=== PATIENT | female | born 1980 | race Caucasian/White ===

== ENCOUNTER 2017-10-09 20:08 | Emergency (ER) | payer MEDICAID ==
[~2017-10-09] VITALS: Ht 152.4 cm; Wt 86.2 kg
[2017-10-09] MEDS ORDERED: ALBUTEROL2.5 MG/31 INH (20:20)
[2017-10-09 20:22] LABS: URINE BILIRUBIN NEGATIVE (Negative); URINE BLOOD NEGATIVE (Negative); URINE CLARITY CLEAR; URINE COLOR YELLOW; URINE GLUCOSE-RANDOM 1+ (Negative); URINE KETONES NEGATIVE (Negative); URINE LEUKOCYTES-REFLEX NEGATIVE (Negative); URINE NITRITE-REFLEX NEGATIVE (Negative); URINE PROTEIN NEGATIVE (Negative); URINE SPECIFIC GRAVITY <= 1.005 (1.005-1.030); URINE UROBILINOGEN 0.2 E.U./dl (0.2-1.0)
[2017-10-09] MEDS ORDERED: LITHIUM CARBON600 MG PO (20:22)
[2017-10-09] MEDS ORDERED: EFFEXOR XR75 MG PO (20:22)
[2017-10-09] MEDS ORDERED: TRAZODONE 150150 M1 PO (20:22)
[2017-10-09 20:30] LABS: AMP/METHAMP Negative (Negative); BARBITURATES Negative (Negative); BENZODIAZEPINES Negative (Negative); COCAINE Negative (Negative); METHADONE Negative (Negative); OPIATES Negative (Negative); PCP Negative (Negative); THC Negative (Negative)
[2017-10-09 20:41] LABS: ABSOLUTE LYMPHOCYTES 1.7 thou/uL (0.8-5.3); ABSOLUTE MONOCYTES 0.6 thou/uL (0.0-1.2); ABSOLUTE NEUTROPHILS 7.5 thou/uL (1.6-8.1); BASOPHILS 0.4 %; EOSINOPHILS 0.2 %; HEMATOCRIT 35.4 % (37.0-47.0); HEMOGLOBIN 12.2 gm/dL (12.0-15.0); LYMPHOCYTES 17.7 %; MCHC 34.6 g/dL (28.0-37.0); MCV 83.9 fL (80.0-100.0); MONOCYTES 5.9 %; MPV 6.9 fl. (7.2-11.1); NUCLEATED RBCS 0 /100WBC; PLATELET COUNT* 376 thou/uL (150-400); POLYS 75.8 %; RBC 4.22 mil/uL (4.20-5.00); RDW-CV 13.1 % (10.5-14.5); WBC 9.8 thou/uL (4.0-11.0)
[2017-10-09 20:51] LABS: CALCIUM 8.5 mg/dL (8.5-10.1); CREATININE 0.9 mg/dL (0.6-1.3); POTASSIUM 3.2 mmol/L (3.5-5.1)
[2017-10-09 20:55] LABS: APTT 25.2 Seconds (25.0-31.3); PROTIME 10.3 Seconds (9.20-11.50)
[2017-10-09 21:04] LABS: ALBUMIN 3.7 g/dL (3.4-5.0); TOTAL BILIRUBIN 0.4 mg/dL (<0.1-1.0); TOTAL PROTEIN 7.1 g/dL (6.4-8.2)
[2017-10-09 21:06] LABS: ALCOHOL < 10 mg/dL (<10); SALICYLATE 3.2 mg/dL (2.8-20.0)
[2017-10-09 21:07] LABS: ACETAMINOPHEN < 2 ug/mL (10-30)
--- NOTE | 2017-10-10 14:40 | EKG ---
[place] [address] ELECTROCARDIOGRAM REPORT Name: KIMMIE LLAMAS Room: [facility]#: [id number] Admission: 10/09/17 Attend Phys: Discharge: Date of : 82 Report #: [id number] THIS REPORT FOR: //name// [facility] ED Test Date: 2017-10-09 Test Time: 20:27:20 Pat Name: KIMMIE LLAMAS Department: Room: Gender: F [employer] Assistant: NATASHA : 1980 Requested By: Jose M Garrett Order Number: [id number] MD: Irineo Gonzales Measurements Intervals [place] Rate: 101 P: 8 WI: 134 QRS: 4 QRSD: 96 T: 21 QT: 439 QTc: 570 Interpretive Statements Sinus tachycardia Probable left ventricular hypertrophy Prolonged QT interval No previous ECG available for comparison Electronically Signed On 10-10-2017 14:39:52 CDT by Irineo Gonzales [email or web address] <ELECTRONICALLY SIGNED> By: Irineo Gonzales MD, [facility] 10/10/17 1439 26 26 Irineo Gonzales MD, FACC /EPI
[2017-10-11 08:48] VITALS: BP 127/61
== END 2017-10-11 08:55 ==
LOC: M.ERS 20:08
PROVIDERS: Family Medicine
DX: R45.851 Suicidal ideations (principal); T43.592A Poisoning by other antipsychotics and neuroleptics, intentional self-harm, initial encounter; Y92.89 Other specified places as the place of occurrence of the external cause; F41.9 Anxiety disorder, unspecified; Z98.890 Other specified postprocedural states

== ENCOUNTER 2017-11-22 03:27 | Emergency (ER) | payer MEDICAID ==
[~2017-11-22] VITALS: Ht 152.4 cm; Wt 90.7 kg
[~2017-11-22 03:27] MED LIST: ALBUTEROL2.5 MG/31 INH; EFFEXOR XR75 MG PO; LITHIUM CARBON600 MG PO; TRAZODONE 150150 M1 PO
[2017-11-22 03:41] LABS: URINE BILIRUBIN NEGATIVE (Negative); URINE BLOOD NEGATIVE (Negative); URINE CLARITY CLEAR; URINE COLOR YELLOW; URINE GLUCOSE-RANDOM TRACE (Negative); URINE KETONES NEGATIVE (Negative); URINE LEUKOCYTES-REFLEX NEGATIVE (Negative); URINE NITRITE-REFLEX NEGATIVE (Negative); URINE PROTEIN NEGATIVE (Negative); URINE UROBILINOGEN 0.2 E.U./dl (0.2-1.0)
[2017-11-22] MEDS ORDERED: LATUDA20 MG PO (03:47)
[2017-11-22] MEDS ORDERED: GLIPIZIDE 10 MG10 MG PO (03:47)
[2017-11-22] MEDS ORDERED: LANTUS100 UNIT/M SUBQ (03:47)
[2017-11-22 03:48] LABS: AMP/METHAMP POSITIVE (Negative); BARBITURATES Negative (Negative); BENZODIAZEPINES Negative (Negative); COCAINE Negative (Negative); METHADONE Negative (Negative); OPIATES Negative (Negative); PCP Negative (Negative); THC Negative (Negative)
[2017-11-22 04:04] LABS: ABSOLUTE BASOPHILS 0.1 thou/uL (0.0-0.2); ABSOLUTE EOSINOPHILS 0.3 thou/uL (0.0-0.7); ABSOLUTE LYMPHOCYTES 4.5 thou/uL (0.8-5.3); ABSOLUTE MONOCYTES 0.7 thou/uL (0.0-1.2); ABSOLUTE NEUTROPHILS 6.4 thou/uL (1.6-8.1); BASOPHILS 0.8 %; EOSINOPHILS 2.4 %; HEMATOCRIT 38.2 % (37.0-47.0); HEMOGLOBIN 13.3 gm/dL (12.0-15.0); LYMPHOCYTES 37.5 %; MCH 29.7 pg (26.0-34.0); MCHC 34.8 g/dL (28.0-37.0); MCV 85.2 fL (80.0-100.0); MONOCYTES 5.6 %; MPV 7.3 fl. (7.2-11.1); NUCLEATED RBCS 0 /100WBC; PLATELET COUNT* 448 thou/uL (150-400); POLYS 53.7 %; RBC 4.48 mil/uL (4.20-5.00); RDW-CV 13.7 % (10.5-14.5); WBC 11.9 thou/uL (4.0-11.0)
[2017-11-22 04:25] LABS: CALCIUM 8.9 mg/dL (8.5-10.1); CREATININE 0.7 mg/dL (0.6-1.3); POTASSIUM 3.6 mmol/L (3.5-5.1)
[2017-11-22 04:29] LABS: ALBUMIN 3.8 g/dL (3.4-5.0); TOTAL BILIRUBIN 0.2 mg/dL (<0.1-1.0); TOTAL PROTEIN 7.7 g/dL (6.4-8.2)
[2017-11-22 04:30] LABS: ACETAMINOPHEN < 2 ug/mL (10-30); ALCOHOL 155 mg/dL (<10); SALICYLATE 2.8 mg/dL (2.8-20.0)
[2017-11-22 06:26] VITALS: BP 124/78
== END 2017-11-22 06:27 | disposition home or self-care (01) ==
LOC: M.ERS 03:27
PROVIDERS: Family Medicine
DX: F10.129 Alcohol abuse with intoxication, unspecified (principal); F32.9 Major depressive disorder, single episode, unspecified; F41.9 Anxiety disorder, unspecified; Z98.890 Other specified postprocedural states

== ENCOUNTER 2019-04-20 17:48 | Emergency (ER) | payer MEDICAID ==
[~2019-04-20] VITALS: Ht 152.4 cm; Wt 77.1 kg
[~2019-04-20 17:48] MED LIST changes: +GLIPIZIDE 10 MG10 MG PO; +LANTUS100 UNIT/M SUBQ; +LATUDA20 MG PO
[2019-04-20] MEDS ORDERED: ZOFRAN ODT4 MG SUBLING (18:36)
[2019-04-20] MEDS ORDERED: NORCO 5-325 TA1 EAC1 PO (18:36)
[2019-04-20 18:51] VITALS: BP 139/76
== END 2019-04-20 18:52 | disposition home or self-care (01) ==
LOC: M.ERS 17:48
DX: G89.29 Other chronic pain (principal); R10.32 Left lower quadrant pain; Z98.890 Other specified postprocedural states

== ENCOUNTER 2019-11-07 03:11 | Emergency (ER) | payer OTHER, MEDICAID ==
[~2019-11-07] VITALS: Ht 152.4 cm; Wt 90.7 kg
[~2019-11-07 03:11] MED LIST changes: +NORCO 5-325 TA1 EAC1 PO; +ZOFRAN ODT4 MG SUBLING
[2019-11-07] MEDS ORDERED: TEMAZAPAM (03:22)
[2019-11-07] MEDS ORDERED: CLONAZEPAM 0.50.5 M1 PO (03:23)
[2019-11-07] MEDS ORDERED: CBD OIL (03:24)
[2019-11-07 03:54] LABS: URINE BILIRUBIN NEGATIVE (Negative); URINE BLOOD NEGATIVE (Negative); URINE CLARITY CLEAR; URINE COLOR YELLOW; URINE GLUCOSE-RANDOM 1+ (Negative); URINE KETONES NEGATIVE (Negative); URINE LEUKOCYTES NEGATIVE (Negative); URINE NITRITE NEGATIVE (Negative); URINE PROTEIN NEGATIVE (Negative); URINE UROBILINOGEN 0.2 E.U./dl (0.2-1.0)
[2019-11-07 04:01] LABS: HEMATOCRIT 39.9 % (37.0-47.0); HEMOGLOBIN 14.6 gm/dL (12.0-15.0); MCH 30.1 pg (26.0-34.0); MCHC 36.4 g/dL (28.0-37.0); MCV 82.6 fL (80.0-100.0); MPV 7.1 fl. (7.2-11.1); RBC 4.83 mil/uL (4.20-5.00); RDW-CV 14.5 % (10.5-14.5); WBC 10.1 thou/uL (4.0-11.0)
[2019-11-07 04:02] LABS: AMP/METHAMP POSITIVE (Negative); BARBITURATES Negative (Negative); BENZODIAZEPINES Negative (Negative); COCAINE Negative (Negative); METHADONE Negative (Negative); OPIATES Negative (Negative); PCP Negative (Negative); THC Negative (Negative)
[2019-11-07 04:15] LABS: CALCIUM 8.8 mg/dL (8.5-10.1); CREATININE 0.8 mg/dL (0.6-1.3); POTASSIUM 3.4 mmol/L (3.5-5.1)
[2019-11-07 04:20] LABS: TOTAL BILIRUBIN 0.2 mg/dL (<0.1-1.0); TOTAL PROTEIN 7.9 g/dL (6.4-8.2)
[2019-11-07 04:25] LABS: ACETAMINOPHEN < 2 ug/mL (10-30); ALCOHOL 167 mg/dL (<10); SALICYLATE 3.5 mg/dL (2.8-20.0)
[2019-11-09 17:10] VITALS: BP 143/72
== END 2019-11-09 17:11 | disposition still patient (30) ==
LOC: M.ERS 03:11
PROVIDERS: Personal Emergency Response Attendant
DX: R45.851 Suicidal ideations (principal); Z20.828 Contact with and (suspected) exposure to other viral communicable diseases; F10.121 Alcohol abuse with intoxication delirium; F41.9 Anxiety disorder, unspecified; Z79.899 Other long term (current) drug therapy; Y90.9 Presence of alcohol in blood, level not specified